=== PATIENT | male | born 1970 | race Caucasian/White ===

== ENCOUNTER 2018-03-20 11:33 | Emergency (ER) | payer OTHER ==
[~2018-03-20] VITALS: Ht 188 cm; Wt 90.1 kg
[~2018-03-20 11:33] MED LIST: ONDA4TAB12 PO
[2018-03-20 11:47] VITALS: BP 146/89
[2018-03-20] MEDS ORDERED: IBUP-1985 PO (13:13)
[2018-03-20] MEDS ORDERED: CLIN300C85 PO (13:13)
== END 2018-03-20 13:36 | disposition home or self-care (01) ==
LOC: ER 11:33
DX: K08.89 Other specified disorders of teeth and supporting structures (principal); Z88.0 Allergy status to penicillin; Z79.2 Long term (current) use of antibiotics; Z79.1 Long term (current) use of non-steroidal anti-inflammatories (NSAID)
CPT/HCPCS: 99283